=== PATIENT | male | born 1950 | race Two or more races ===

== ENCOUNTER 2019-04-27 11:56 | Emergency (ER) | payer MEDICARE, MEDICAID ==
[~2019-04-27] VITALS: Ht 134.6 cm; Wt 72.6 kg
[2019-04-27] MEDS ORDERED: Morphine Sulfate 2mg/ml Inj(IV/IM USE ONLY) IVP ONE (12:30)
[2019-04-27] MEDS ORDERED: Metoclopramide 10mg/2ml Inj IVP ONE (12:30)
[2019-04-27] MEDS ORDERED: Omnipaque-300 100ml vial INJ PRN (12:30)
--- NOTE | 2019-04-27 12:46 | Emergency Room Report ---
History of Present Illness General Chief Complaint: Abdominal Pain Source: Patient, Family Member Present Illness HPI Patient presents with left-sided jaw and facial pain for over a week. He is also had fevers and chills. He is not eating well. He also is complaining about left upper abdomen pain. He is not moving his bowels as he is not eating well. The last time he moved his bowels was on Thursday a week ago. This happened to him a few years ago but it got better on its own and he is not sure what the cause was. Pain rated 8/10 in both jaw and upper abdomen. Pain is nonradiating. Constant. Aching. Patient is a insulin-dependent diabetic. Patient is status post stroke with right-sided weakness. Daughter feels that there may be some increased weakness in the left face that began 4 days ago. The patient denies this and states it is mainly because of the pain in his face. Patient denies sore throat or productive cough. Allergies: Coded Allergies: No Known Allergies (Unverified , 04/27/19) Patient History Past Medical History: see triage record Social History: Denies: smoking - Stopped in 2017 Social History Narrative Born in [facility] Reviewed Nursing Documentation: PMH: Agreed; PSxH: Agreed Nursing Documentation-PM Past Medical History: No History, Except For Hx Hypertension: Yes Hx Diabetes: Yes Review of Systems All Other Systems: negative except mentioned in HPI Physical Exam Vital Signs Date Time Temp Pulse Resp B/P (MAP) Pulse Ox O2 Delivery O2 Flow Rate FiO2 04/27/19 12:08 100.0 107 20 158/95 (116) 94 Room Air Sp02 EP Interpretation: reviewed, abnormal - Interpreted as low by me General Appearance: well appearing, no apparent distress, GCS 15, non-toxic Head: normocephalic Eyes: bilateral eye normal inspection, bilateral eye PERRL, bilateral eye EOMI ENT: normal pharynx, other - Caps left lower teeth Neck: supple Respiratory: lungs clear, decreased breath sounds Cardiovascular #1: no edema, tachycardia Cardiovascular #2: 2+ radial (R) Gastrointestinal: normal inspection, normal bowel sounds, no mass, non- distended, no guarding, no rebound, tenderness - Reported upper abdomen Genitourinary: no CVA tenderness Musculoskeletal: back normal, digits/nails normal, other - Contracture right arm Neurologic: oriented, sensory intact, motor weakness - Right arm weakness with facial asymmetry Psychiatric: mood/affect normal Skin: no rash, warm/dry Medical Decision Making Diagnostic Impression: Primary Impression: RLL pneumonia Qualified Codes: J18.9 - Pneumonia, unspecified organism Additional Impressions: Abdominal pain Qualified Codes: R10.10 - Upper abdominal pain, unspecified Fever Qualified Codes: R50.9 - Fever, unspecified Status post CVA Pain, dental ER Course Diabetic patient presents with left jaw pain, abdominal pain and inability to move his bowels. Differential includes acute myocardial infarction, small bowel obstruction, diverticulitis, urinary tract infection amongst others. Evaluation with EKG, chest x-ray, abdominal film and labs. The patient will be treated with IV hydration and Reglan small dose of morphine and an enema. The patient is placed on a threat monitoring analyst. The patient has comorbidities that are significant. EKG with ST. CXR no infiltrate. White count normal but left shift. Glucose minimally elevated. Lactate normal. Fever 102. Tylenol given. Await CT abdomen. CT without surgical pathology. Evidence of right lower lobe infiltrate. 15:12. Antibiotics ordered Pain improved with analgesia. Discussed with Dr. Ribeiro at [facility]. Accepts in transfer. Lactic acid pending. Laboratory Tests Test 04/27/19 12:25 04/27/19 15:12 White Blood Count 10.2 K/UL (4.8-10.8) Red Blood Count 5.00 M/UL (4.70-6.10) Hemoglobin 14.2 G/DL (14.2-18.0) Hematocrit 41.4 % (42.0-52.0) L Mean Corpuscular Volume 83 FL (80-99) Mean Corpuscular Hemoglobin 28.4 PG (27.0-31.0) Mean Corpuscular Hemoglobin Concent 34.3 G/DL (32.0-36.0) Red Cell Distribution Width 10.6 % (11.6-14.8) L Platelet Count 261 K/UL (150-450) Mean Platelet Volume 6.3 FL (6.5-10.1) L Neutrophils (%) (Auto) 78.8 % (45.0-75.0) H Lymphocytes (%) (Auto) 14.7 % (20.0-45.0) L Monocytes (%) (Auto) 5.9 % (1.0-10.0) Eosinophils (%) (Auto) 0.4 % (0.0-3.0) Basophils (%) (Auto) 0.3 % (0.0-2.0) Prothrombin Time 10.5 SEC (9.30-11.50) Prothrombin Time INR 1.0 (0.9-1.1) PTT 28 SEC (23-33) Urine Color Yellow Urine Appearance Clear Urine pH 6 (4.5-8.0) Urine Specific [place] 1.020 (1.005-1.035) Urine Protein 2+ (NEGATIVE) H Urine Glucose (UA) 1+ (NEGATIVE) H Urine Ketones 3+ (NEGATIVE) H Urine Blood 2+ (NEGATIVE) H Urine Nitrite Negative (NEGATIVE) Urine Bilirubin Negative (NEGATIVE) Urine Urobilinogen 1 MG/DL (0.0-1.0) H Urine Leukocyte Esterase 1+ (NEGATIVE) H Urine RBC 2-4 /HPF (0 - 0) H Urine WBC 0-2 /HPF (0 - 0) Urine Squamous Epithelial Cells Occasional /LPF Urine Bacteria Occasional /HPF (NONE) Sodium Level 134 MMOL/L (136-145) L Potassium Level 3.8 MMOL/L (3.5-5.1) Chloride Level 99 MMOL/L (98-107) Carbon Dioxide Level 27 MMOL/L (21-32) Anion Gap 8 mmol/L (5-15) Blood Urea Nitrogen 14 mg/dL (7-18) Creatinine 1.1 MG/DL (0.55-1.30) Estimate Glomerular Filtration Rate > 60 mL/min (>60) Glucose Level 202 MG/DL (74-106) H Calcium Level 8.5 MG/DL (8.5-10.1) Magnesium Level 1.6 MG/DL (1.8-2.4) L Total Bilirubin 0.8 MG/DL (0.2-1.0) Aspartate Amino Transferase (AST) 20 U/L (15-37) Alanine Aminotransferase (ALT) 29 U/L (12-78) Alkaline Phosphatase 82 U/L (46-116) Total Creatine Kinase 103 U/L (26-308) Troponin I 0.000 ng/mL (0.000-0.056) Total Protein 7.6 G/DL (6.4-8.2) Albumin 3.3 G/DL (3.4-5.0) L Globulin 4.3 g/dL Albumin/Globulin Ratio 0.8 (1.0-2.7) L Lipase 103 U/L (73-393) Lactic Acid Level 0.80 mmol/L (0.4-2.0) Microbiology Date/Time Source Procedure Growth Status 04/27/19 15:25 Nose - Final Complete 04/27/19 15:25 Nose - Final Complete EKG Diagnostic Results Rate: tachycardiac Rhythm: NSR ST Segments: no acute changes Rhythm Strip Diag. Results EP Interpretation: yes Rhythm: no PVC's, no ectopy, other - Sinus tachycardia Chest X-Ray Diagnostic Results Chest X-Ray Diagnostic Results : Chest X-Ray Ordered: Yes # of Views/Limited/Complete: 1 View Indication: Other EP Interpretation: Yes Interpretation: no consolidation, no effusion, no pneumothorax Impression: No acute disease Electronically Signed by: Electronically signed by Alvaro Sinclair MD CT/MRI/US Diagnostic Results CT/MRI/US Diagnostic Results : Imaging Test Ordered: abd/pelvis Impression Impression: Dense consolidation of much of the visualized right lower lobe, could indicate pneumonia. Small right pleural effusion also noted. Left basilar posterior dependent atelectatic changes and possibly some consolidation involving the visualized left lower lobe Mild distal esophageal wall thickening, could indicate esophagitis No definite acute abdominal or pelvic abnormality L2 vertebral body compression fracture, age-indeterminate. Consider further evaluation with MRI if clinically relevant Subcentimeter low-attenuation left renal lesion incidentally noted, most likely a benign simple cyst. No further follow-up necessary Last Vital Signs Date Time Temp Pulse Resp B/P (MAP) Pulse Ox O2 Delivery O2 Flow Rate FiO2 04/27/19 19:35 98.6 86 18 136/78 100 Room Air Status: improved Disposition: XFER [facility] Condition: Serious Alvaro Sinclair MD Apr 27, 2019 12:46
[2019-04-27 12:51] LABS: BASOPHILS % (AUTO) 0.3 % (0.0-2.0); EOSINOPHILS % (AUTO) 0.4 % (0.0-3.0); HEMATOCRIT 41.4 % (42.0-52.0); HEMOGLOBIN 14.2 G/DL (14.2-18.0); LYMPHOCYTES % (AUTO) 14.7 % (20.0-45.0); MEAN CORPUSCULAR VOLUME 83 FL (80-99); MONOCYTES % (AUTO) 5.9 % (1.0-10.0); NEUTROPHILS % (AUTO) 78.8 % (45.0-75.0); PLATELET COUNT 261 K/UL (150-450); RED CELL DISTRIBUTION WIDTH 10.6 % (11.6-14.8); WHITE BLOOD COUNT 10.2 K/UL (4.8-10.8)
[2019-04-27 12:52] LABS: ANION GAP 8 mmol/L (5-15); BLOOD UREA NITROGEN 14 mg/dL (7-18); CALCIUM 8.5 MG/DL (8.5-10.1); CARBON DIOXIDE 27 MMOL/L (21-32); CHLORIDE 99 MMOL/L (98-107); CREATININE 1.1 MG/DL (0.55-1.30); POTASSIUM 3.8 MMOL/L (3.5-5.1); SODIUM 134 MMOL/L (136-145)
[2019-04-27 12:55] LABS: APPEARANCE,URINE CLEAR; BILIRUBIN, URINE NEGATIVE (NEGATIVE); GLUCOSE, URINE (UA) 1+ (NEGATIVE); KETONES,URINE 3+ (NEGATIVE); LEUKOCYTE ESTERASE ,URINE 1+ (NEGATIVE); NITRITE,URINE NEGATIVE (NEGATIVE); PH,URINE 6 (4.5-8.0); PROTEIN,URINE 2+ (NEGATIVE); UROBILINOGEN,URINE 1 MG/DL (0.0-1.0)
[2019-04-27 12:56] LABS: ALANINE AMINOTRANSFERASE 29 U/L (12-78); ALBUMIN 3.3 G/DL (3.4-5.0); ALBUMIN/GLOBULIN RATIO 0.8 (1.0-2.7); ALKALINE PHOSPHATASE 82 U/L (46-116); ASPARTATE AMINO TRANSFERASE 20 U/L (15-37); BILIRUBIN,TOTAL 0.8 MG/DL (0.2-1.0); CREATINE KINASE 103 U/L (26-308)
[2019-04-27 12:57] LABS: COLOR,URINE YELLOW
[2019-04-27 13:29] VITALS: BP 152/96
[2019-04-27] MEDS ORDERED: Acetaminophen 500mg (ES) tab ORAL ONE ×2 (13:45→14:00)
[2019-04-27] MEDS ORDERED: GABAPENTIN100 MG ORAL (14:41)
[2019-04-27] MEDS ORDERED: AMLODIPINE BESYL5 MG ORAL (14:41)
[2019-04-27] MEDS ORDERED: HUMALOG100 UNIT/4 SUBQ (14:41)
[2019-04-27] MEDS ORDERED: ASPIR 8181 MG ORAL (14:41)
[2019-04-27] MEDS ORDERED: METFORMIN HCL500 M1 ORAL (14:41)
--- NOTE | 2019-04-27 14:49 | Diagnostic Imaging Report ---
Indication: Chest pain Technique: One view of the chest Comparison: none Findings: Inspiration is suboptimal. The heart size is borderline enlarged. Lungs and pleural spaces are clear. Impression: No definite acute process Borderline cardiomegaly
--- NOTE | 2019-04-27 14:57 | Diagnostic Imaging Report ---
Clinical Indication: Abdominal pain Technique: Patient given oral contrast. IV administration nonionic contrast. Venous phase spiral acquisition obtained through the abdomen and pelvis. Multiplanar reconstructions were generated. Total dose length product 1122 mGycm. CTDIvol(s) 19 mGy. Dose reduction achieved using automated exposure control Comparison: none Findings: The appendix is normal. No evidence of colonic diverticulosis or diverticulitis. The colon is diffusely stool-filled. Small bowel is well opacified; ingested contrast traverses entirety of the small bowel, reaches the ileocecal valve. No small bowel distention or small bowel wall thickening. The distal esophagus demonstrates mild wall thickening. The stomach and duodenum are unremarkable. The liver, gallbladder, bile ducts, pancreas, spleen, adrenals, right kidney are unremarkable. The left kidney demonstrates a subcentimeter low attenuation peripheral lesion coming off of the lateral lower pole. No renal or ureteral calculi, hydronephrosis, or hydroureter. Bladder is somewhat distended. No pelvic mass or adenopathy. No retroperitoneal or mesenteric mass or adenopathy. There is a compression fracture deformity of the L2 vertebral body, with approximately 30% height loss anteriorly and slight posterior retropulsion.. There are degenerative proliferative changes of the discs and degenerative narrowing of the L5-S1 disc. The lung bases demonstrate considerable dense consolidation of much of the right lower lobe. Posterior dependent atelectatic changes and possibly some consolidation are seen involving the left lower lobe. There is a trace amount of pleural fluid on the right Impression: Dense consolidation of much of the visualized right lower lobe, could indicate pneumonia. Small right pleural effusion also noted. Left basilar posterior dependent atelectatic changes and possibly some consolidation involving the visualized left lower lobe Mild distal esophageal wall thickening, could indicate esophagitis No definite acute abdominal or pelvic abnormality L2 vertebral body compression fracture, age-indeterminate. Consider further evaluation with MRI if clinically relevant Subcentimeter low-attenuation left renal lesion incidentally noted, most likely a benign simple cyst. No further follow-up necessary The CT scanner at [facility] is accredited by the [employer] and the scans are performed using protocols designed to limit radiation exposure to as low as reasonably achievable to attain images of sufficient resolution adequate for diagnostic evaluation.
[2019-04-27] MEDS ORDERED: Vancomycin 1 GM in NS 275 ML IVPB ONE (15:15)
[2019-04-27] MEDS ORDERED: Piperacillin/Tazobactam 3.375 GM in NS 110 ML IVPB ONE (15:15)
[2019-04-27] MEDS ORDERED: Zosyn 3.375gm inj ONE (15:49)
[2019-04-27 15:59] VITALS: BP 113/68
[2019-04-27 19:35] VITALS: BP 136/78
--- NOTE | 2019-04-28 12:46 | Cardiology Report ---
APPROVED REPORT EKG Measurement Heart [id number] Sinus tachycardia Otherwise normal ECG
== END 2019-04-27 19:25 | disposition short-term general hospital (02) ==
LOC: EMR 12:45
DX: J18.9 Pneumonia, unspecified organism (principal); R10.10 Upper abdominal pain, unspecified; R50.9 Fever, unspecified; K08.89 Other specified disorders of teeth and supporting structures; E11.9 Type 2 diabetes mellitus without complications; I10 Essential (primary) hypertension; Z79.4 Long term (current) use of insulin; G81.91 Hemiplegia, unspecified affecting right dominant side; R00.0 Tachycardia, unspecified; N28.9 Disorder of kidney and ureter, unspecified; S32.029A Unspecified fracture of second lumbar vertebra, initial encounter for closed fracture; X58.XXXA Exposure to other specified factors, initial encounter; Y92.9 Unspecified place or not applicable
CPT/HCPCS: 36415; 71045; 74177; 80053; 81003; 82550; 83605; 83690; 83735; 84484; 85025; 85610; 85730; 86710; 86850; 86900; 86901; 87040; 93005; 96361; 96365; 96368; 96375; 99285; J2270; J2543; J2765; J3370; J7030; J7050; Q9967